=== PATIENT | male | born 1970 | race American Indian/Alaskan Native ===

== ENCOUNTER 2018-10-15 00:22 | Emergency (ER) | payer SELFPAY ==
[2018-10-15 00:29] VITALS: BP 153/109
[2018-10-15] MEDS ORDERED: ROCEPHIN IM ONE (00:39)
[2018-10-15] MEDS ORDERED: XYLOCAINE 1% MPF 5 mL INFILTRATI ONE (00:39)
--- NOTE | 2018-10-15 00:39 | Emergency Department Report ---
Abscess Boil HPI - HPI Chief Complaint: Skin/Abscess/Foreign Body Stated Complaint: SPIDER BITE LEFT ARM Time Seen by Provider: 10/15/18 00:39 Duration: >1 Week Location: Upper Extremity Severity: Mild History: Yes Pain, Yes Purulent Drainage, Yes Insect Bite, No Fever, No Numbness, No Foreign Body, No Previous History HPI: INSECT BITE OVER 1 W AGO ON LEFT ELBOW. ABSCESSED. IT IS OPEN AND DRAINING. NO FEVER. NO NECROSIS. NEUROVASC INTACT WITH PLUS 2 RAD AND ULNAR PULSE. RAPID CAP REFILL Home Medications: Previous Rx's Medication Instructions Recorded Last Taken Type amLODIPine [Norvasc] 5 mg PO QDAY #30 tablet 02/01/13 Unknown Rx Clindamycin [Clindamycin CAP] 300 mg PO Q8H #30 cap 10/15/18 Unknown Rx Allergies/Adverse Reactions: Allergies Allergy/AdvReac Type Severity Reaction Status Date / Time No Known Allergies Allergy Verified 01/31/13 19:38 ED Review of Systems ROS: Stated complaint: SPIDER BITE LEFT ARM Other details as noted in HPI Comment: All other systems reviewed and negative ED Past Medical Hx - Past Medical History Previous Medical History?: Yes Hx Hypertension: Yes Hx Congestive Heart Failure: No Hx Diabetes: No Hx Asthma: No Hx COPD: No - Surgical History Past Surgical History?: No - Social History Smoking Status: Current Every Day Smoker Substance Use Type: None - Medications Home Medications: Home Medications Medication Instructions Recorded Confirmed Last Taken Type amLODIPine [Norvasc] 5 mg PO QDAY #30 tablet 02/01/13 Unknown Rx Clindamycin [Clindamycin CAP] 300 mg PO Q8H #30 cap 10/15/18 Unknown Rx ED Abscess Boil Physical Exam - Exam General: Vital signs noted. No distress. Alert and acting appropriately. Size: 3 cm Exam: Yes Tenderness, Yes Fluctuance, Yes Surrounding Cellulites/Erythema, Yes Heart Murmur, Yes Normal Neurologic Exam, Yes Normal Circulation, No Lymphangitis, No Crepitation ED Course Vital Signs 10/15/18 00:27 Temperature 98.0 F Pulse Rate 92 H Respiratory 18 Rate Blood Pressure 153/109 O2 Sat by Pulse 98 Oximetry Critical care attestation.: If time is entered above; I have spent that time in minutes in the direct care of this critically ill patient, excluding procedure time. ED Medical Decision Making - Medical Decision Making INSECT BITE TO LEFT ELBOW FORMED ABSCESS IT IS DRAINING HERE FOR ANTIBIOTICS FULL ROM OF ARM NEUROVASC INTACT MEDICATED IN ER WOUND CARE EDUCATION ON WOUND CARE DC HOME WITH DC PLAN OF CARE AND PCP FOLLOW UP Vital Signs 10/15/18 00:27 Temperature 98.0 F Pulse Rate 92 H Respiratory 18 Rate Blood Pressure 153/109 O2 Sat by Pulse 98 Oximetry ED Disposition Clinical Impression: Insect bite, Abscess, Elevated blood pressure reading Disposition: DC-01 TO HOME OR SELFCARE Is pt being admited?: No Does the pt Need Aspirin: No Condition: Stable Instructions: Insect Bite or Sting (ED), Abscess (ED) Additional Instructions: MEDS ORDERED SOAK WOUND IN EPSOM SALTS AND WARM WATER FOR 20 MIN AT LEAST 3 TIMES PER DAY FOLLOW UP PCP THIS WEEK REFERRAL BELOW MOTRIN OR TYLENOL FOR MILD PAIN KEEP WOUND COVERED WHEN OUT AND WORKING CLEAN WITH SOAP AND WATER TAKE BP MEDS PER PCP MONITOR YOUR BP IT WAS ELEVATED TODAY Prescriptions: Clindamycin [Clindamycin CAP] 300 mg PO Q8H #30 cap Referrals: NINO REYNA MD [Staff Physician] - 3-5 Days Time of Disposition: 00:49
[2018-10-15] MEDS ORDERED: DELTASONE PO ONE (00:48)
[2018-10-15] MEDS ORDERED: TRIPLE ANTIBIOTIC TP ONE (00:48)
== END 2018-10-15 01:30 | disposition home or self-care (01) ==
LOC: ED 00:22
DX: S50.362A Insect bite (nonvenomous) of left elbow, initial encounter (principal); L02.414 Cutaneous abscess of left upper limb; I10 Essential (primary) hypertension; F17.200 Nicotine dependence, unspecified, uncomplicated; W57.XXXA Bitten or stung by nonvenomous insect and other nonvenomous arthropods, initial encounter; Y93.89 Activity, other specified; Y92.89 Other specified places as the place of occurrence of the external cause; Y99.8 Other external cause status
CPT/HCPCS: 96372; 99282; J0696; J7512; A6250

== ENCOUNTER 2021-11-06 01:13 | Emergency (ER) | payer SELFPAY ==
[2021-11-06] MEDS ORDERED: TETANUS,DIPH,PERTUSS(ACELL) VACCINE 0.5 ML SYRINGE IM ONE (07:54)
--- NOTE | 2021-11-06 08:07 | Emergency Department Report ---
ED Animal Bite HPI - General Chief Complaint: Animal Bite Stated Complaint: BITE/LEFT HAND Time Seen by Provider: 11/06/21 07:53 Source: patient Mode of arrival: Ambulatory Limitations: No Limitations - History of Present Illness Initial Comments: 51 YO COMES TO ER WITH HAND BITE. IT WAS HIS NEIGHBORS DOG. THE DOG IS UTD ON SHOTS. HAPPENED LAST NIGHT SWELLING OF THE HAND BRINGS PT TO ER NEUROVASC INTACT NEEDS TDAP Complaint: animal bite -: Gradual, days(s) Location: other Left: Hand Animal: dog Animal Control Notified: No Description: household pet Mechanism: bite Severity scale (0 -10): 1 Context: unprovoked Associated Symptoms: none - Related Data Patient Tetanus UTD: No Previous Rx's Medication Instructions Recorded Last Taken Type amLODIPine 5 mg PO QDAY #30 tablet 02/01/13 Unknown Rx Amoxicillin/K Clav Tab [Augmentin 1 tab PO Q12HR #20 tab 11/06/21 Unknown Rx 875 mg] Ibuprofen [Motrin] 800 mg PO Q8HR PRN #30 tablet 11/06/21 Unknown Rx Allergies Allergy/AdvReac Type Severity Reaction Status Date / Time No Known Allergies Allergy Verified 01/31/13 19:38 ED Review of Systems ROS: Stated complaint: BITE/LEFT HAND Other details as noted in HPI Comment: All other systems reviewed and negative ED Past Medical Hx - Past Medical History Previous Medical History?: Yes Hx Hypertension: Yes Hx Congestive Heart Failure: No Hx Diabetes: No Hx Asthma: No Hx COPD: No - Surgical History Past Surgical History?: No - Family History Family history: no significant - Social History Smoking Status: Unknown if ever smoked Substance Use Type: None - Medications Home Medications: Home Medications Medication Instructions Recorded Confirmed Last Taken Type amLODIPine 5 mg PO QDAY #30 tablet 02/01/13 Unknown Rx Amoxicillin/K Clav Tab [Augmentin 1 tab PO Q12HR #20 tab 11/06/21 Unknown Rx 875 mg] Ibuprofen [Motrin] 800 mg PO Q8HR PRN #30 tablet 11/06/21 Unknown Rx ED Physical Exam - General Limitations: No Limitations General appearance: alert, in no apparent distress - Head Head exam: Present: atraumatic, normocephalic - Eye Eye exam: Present: normal appearance - ENT ENT exam: Present: mucous membranes moist - Neck Neck exam: Present: normal inspection - Respiratory Respiratory exam: Present: normal lung sounds bilaterally. Absent: respiratory distress - Cardiovascular Cardiovascular Exam: Present: regular rate, normal rhythm. Absent: systolic murmur, diastolic murmur, rubs, gallop - GI/Abdominal GI/Abdominal exam: Present: soft, normal bowel sounds - Rectal Rectal exam: Present: deferred - Extremities Exam Extremities exam: Present: normal inspection - Back Exam Back exam: Present: normal inspection - Neurological Exam Neurological exam: Present: alert, oriented X3 - Psychiatric Psychiatric exam: Present: normal affect, normal mood - Skin Skin exam: Present: warm, dry, normal color, other (LEFT HAND PUNCTURE [place]). Absent: rash - Expanded Skin Exam Expanded 1 - PUNCTURE 2 - PUNCTURE BITE ED Course Vital Signs 11/06/21 11/06/21 04:07 08:37 Temperature 97.7 F Pulse Rate 65 89 Respiratory 16 16 Rate Blood Pressure 172/117 Blood Pressure 172/117 177/122 [Right] O2 Sat by Pulse 98 99 Oximetry - Reevaluation(s) Reevaluation #1: 11/06/21 12:02 WOUND CLEANED TDAP GIVEN ANTIBIOTIC STARTED NO RABIES NEEDED Vital Signs 11/06/21 11/06/21 04:07 08:37 Temperature 97.7 F Pulse Rate 65 89 Respiratory 16 16 Rate Blood Pressure 172/117 Blood Pressure 172/117 177/122 [Right] O2 Sat by Pulse 98 99 Oximetry FULL ROM HAND RAD/ULNAR PULSE PLUS 2 RAPID CAP REFILL A/C BP ELEVATION - NO CP OR SOB. NO HEADACHE NEURO INTACT HE HAS NOT TAKEN DAILY MEDS STATES BP ALWAYS INC AT WHEN WITH MD MEDICATED FOR PAIN HE WILL FOLLOW WITH PCP IN AM DC HOME WITH DC PLAN OF CARE INCLUDING DIET/MEDS/ACTIVITY AND FOLLOW UP. HE VERBALIZES UNDERSTANDING Critical care attestation.: If time is entered above; I have spent that time in minutes in the direct care of this critically ill patient, excluding procedure time. ED Disposition Clinical Impression: Animal bite, Malignant essential hypertension Disposition: HOME / SELF CARE / HOMELESS Is pt being admited?: No Does the pt Need Aspirin: No Condition: Stable Instructions: Preventing Hypertension, Animal Bite, Adult, Hypertension (ED) Additional Instructions: KEEP WOUND CLEAN AND DRY MOTRIN OR OVER THE COUNTER TYLENOL FOR PAIN ANTIBIOTIC UNTIL GONE TETANUS UPDATED TODAY DISCUSS WITH NEIGHBOR THE RABIES ISSUE SEE LIST OF RESOURCES GIVEN MONITOR YOUR BP IT IS HIGH TAKE DAILY BP MEDS INSTRUCTED SEE PCP THIS WEEK TO RECHECK IT Prescriptions: Amoxicillin/K Clav Tab [Augmentin 875 mg] 1 tab PO Q12HR #20 tab Ibuprofen [Motrin] 800 mg PO Q8HR PRN #30 tablet PRN Reason: Pain, Moderate (4-6) Referrals: SHIVA MELCHOR MD [Primary Care Provider] - 3-5 Days Forms: Work/School Release Form(ED) Time of Disposition: 08:11
[2021-11-06] MEDS ORDERED: HYDROcodone/ACETAMINOPHEN 5-325 MG TAB PO SCH (08:30)
[2021-11-06] MEDS ORDERED: AMOXICILLIN/K CLAV 875/125MG TAB PO SCH (08:30)
[2021-11-06 08:39] VITALS: BP 177/122
== END 2021-11-06 08:39 | disposition home or self-care (01) ==
LOC: ED 01:13
DX: S61.432A Puncture wound without foreign body of left hand, initial encounter (principal); I10 Essential (primary) hypertension; W54.0XXA Bitten by dog, initial encounter; Y93.89 Activity, other specified; Y92.89 Other specified places as the place of occurrence of the external cause; Y99.8 Other external cause status
CPT/HCPCS: 90471; 90715; 99282